=== PATIENT | female | born 1945 | race Two or more races ===

== ENCOUNTER 2025-05-16 13:28 | Outpatient (RCR) | payer OTHER, SELFPAY ==
--- NOTE | 2025-04-28 13:36 | CTCCONSULT_ITS ---
[facility] [address] [place], [place] [address] Consultation Note Date: 04/28/2025 MR#: [id number] Name: KEEGAN RAMOS : 1945 Dx: C82.95 Follicular lymphoma, unspecified, lymph nodes of inguinal region and lower limb Referring physician. Dean Cedeno MD Reason for consultation. Patient with follicular lymphoma right groin region referred for radiation therapy. History of Present Illness: Patient is a lady with follicular lymphoma diagnosed for the past 2 years. 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 This was under observation. Most recent biopsy February 18, 2025 revealed CD10 positive B-cell lymphoma with increased large cells with Ki- 67 proliferation patient index 70% consistent in follicular areas with lymphoma B-cell proliferation. PET scan 03/21/2025 revealed large conglomerate hypermetabolic chloe mass in the right inguinal area extending to the right anterior lateral pelvic sidewall measuring up to 10.2 cm with SUV 10.48 compatible with lymphoma. There was no abnormal uptake seen elsewhere. Patient recently went to the ER February 15, 2025 and noted to have pulmonary embolism without cor pulmonale and right lower extremity DVT. Had IVC filter placed. Past Medical History: Recurrent epigastric pain reportedly with esophageal ulcers and history of gastric paracentesis. 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 Metformin metoclopramide metoprolol potassium Family history. Mother had colon cancer father had prostate cancer Allergies none to meds Social History: Currently retired Review of Systems: Has a nausea nocturia pain in abdomen recent back pain sleep problem unexplained fatigue anxiety blood in bowel movement coughing up of blood Physical Exam: General: Tired appearing lady no acute distress HEENT: Atraumatic normocephalic extraocular is intact no oral lesions no cervical or supraclavicular adenopathy CV: Chest good auscultation heart regular rate and rhythm ABD: Palpable mass in the right groin EXT: Right lower extremity swelling noted Assessment:1. Patient with large right groin follicular B-cell lymphoma. 2. This appears to be fairly large and growing although no sign of extension to other sites of the body. 3. I do agree with Dr. Cedeno that considering the bulky size and the significant growth that chemo needs to be considered. 5. Post chemoradiation therapy would result in smaller field likely lower dosage overall. Side effects discussed. 6. Thank you very much for allowing me to evaluate this patient. Cc: Dean Cedeno MD Electronically signed by: Kiran Londono MD, DABR 04/28/2025 1:34 PM
--- NOTE | 2025-05-02 09:44 | CTCTXPLN_ITS ---
[facility] [place] [address] [place], [place] [address] Physician Clinical Treatment Planning Note Date of Service: 05/02/2025 Name: KEEGAN SANTAMARIALucia SanchezB.: 1945 The patient has agreed to proceed with Radiation therapy. Tests and supporting medical records were interpreted to assist in defining the tumor location and extent of disease. Further imaging will be necessary to contour and delineate the volume to which the XRT will be provided. A. Treatment Intent: Curative B. Modality: 6 MV C. Requested Technique: VMAT D. Treatment Site: Right groin E. Critical structures to be contoured on plan: Pelvis F. In order to accomplish this plan, I am ordering/Prescribing the followin. Simulations (s) will be performed to accomplish a reproducible treatment position, to determine optimal treatment portals/beam arrangements, to design beam modifying devices and verify treatment portals on patient prior to the commencement of Radiation Therapy. Pelvis 2. Devices; for immobilization and beam shaping: Vac-Phoebe 3. CT Guidance for placement of XRT hayes Scan area: 4. Portal images Frequency: 5. Invivo transit dose measurement once per week on all VMAT patients. 6. Special Physics Consult Requested for: 7. Other requests: G. Dose Objectives: Curative Electronically signed by: Kiran Londono M.D. 05/02/2025 9:41 AM
--- NOTE | 2025-05-02 10:15 | CTCTXPLNST_ITS ---
Radiation Oncology Treatment Planning Sheet Name: KEEGAN RAMOS MR#: [id number] : 1945 Dx: C82.95 Follicular lymphoma, unspecified, lymph nodes of inguinal region and lower limb Date of Service: 05/02/2025 Account #: ?? Pt Treatment Intent: curative palliative other: Stage: Procedure CPT # Ordered Spec. Procedure 35788 Villa Complex (set-up) 54601 pelvis 1 Villa Simple 20755 IMRT Plan 77317 1 MLC Devices VMAT 16719 3 Villa 3 D 80042 TRTMT dev Complex 91541 vaklok 1 TRTMT dev simple 89051 Basic Bj 15174 6 Special Dosimetry 55218 Spec Physics 14101 Port Films 15556 SRS Cranial/1FX 15617 SBR 5 FX or Less /ex: 5 = 5 fx 79185 IMRT Simple 90648 3600 20 IMRT Complex 45045 IGRT 33648 18 Rad del com - 02202 Rad del com 10-05 00395 Cont Med Physics 94074 4 Treatment Planning 82206 1 Rad del com 20 mev 53089 Rad del inter 04-26 98320 Rad del inter 10-05 61773 Rad del simple 04-26 08689 Rad del simple 10-05 00967 Special Port Plan 80521 TRTMT dev inter 03295 Isodose Complex 10385 Isodose simple 54485 Resp Motion Mgmt Simulation 28704 Placement of Fiducial Markers 85400 Electronically Signed By: Kiran Londono MD, DABR 05/02/2025 10:13 AM
--- NOTE | 2025-05-09 10:32 | CTCTXPLNST_ITS ---
Radiation Oncology Treatment Planning Sheet Name: KEEGAN RAMOS MR#: [id number] : 1945 Dx: C82.95 Follicular lymphoma, unspecified, lymph nodes of inguinal region and lower limb Date of Service: 05/09/2025 Account #: ?? Pt Treatment Intent: curative palliative other: Stage: Procedure CPT # Ordered Spec. Procedure 09347 Villa Complex (set-up) 49623 pelvis 1 Villa Simple 20170 1 IMRT Plan 28642 MLC Devices VMAT 62242 Villa 3 D 14153 1 TRTMT dev Complex 82232 Vaklok/2F 1 TRTMT dev simple 98470 [place] [address] 2 Special Dosimetry 77680 Spec Physics 83776 Port Films 18008 5 SRS Cranial/1FX 73352 SBR 5 FX or Less /ex: 5 = 5 fx 92581 IMRT Simple 27939 IMRT Complex 05657 IGRT 21948 Rad del com 04-26 56771 Rad del com 10-05 74891 3600 20 Cont Med Physics 76514 4 Treatment Planning 92812 1` Rad del com 20 mev 82128 Rad del inter 04-26 11489 Rad del inter 10-05 27350 Rad del simple 04-26 15728 Rad del simple 10-05 75901 Special Port Plan 40110 TRTMT dev inter 62162 Isodose Complex 56458 Isodose simple 57281 Resp Motion Mgmt Simulation 03165 Placement of Fiducial Markers 44142 Electronically Signed By: Kiran Londono MD, ELHAMR 05/09/2025 10:29 AM
== END 2025-05-16 23:59 | disposition home or self-care (01) ==
LOC: SCTC 13:28
PROVIDERS: PCP Internal Medicine Hematology & Oncology; Referring Provider Internal Medicine Hematology & Oncology; Visit Provider Radiology Therapeutic Radiology
DX: Z51.0 Encounter for antineoplastic radiation therapy (principal); C83.35 Diffuse large B-cell lymphoma, lymph nodes of inguinal region and lower limb; Z80.0 Family history of malignant neoplasm of digestive organs; Z80.42 Family history of malignant neoplasm of prostate
CPT/HCPCS: 77014; 77280; 77290; 77295; 77300; 77334; 77336; 77412; 99213; G0463

== ENCOUNTER 2025-06-13 13:13 | Outpatient (RCR) | payer MEDICARE, SELFPAY | END 2025-06-16 23:59 | disposition home or self-care (01) | LOC: SCTC 13:13 | PROVIDERS: PCP Internal Medicine Hematology & Oncology; Referring Provider Internal Medicine Hematology & Oncology; Visit Provider Radiology Therapeutic Radiology | DX: Z51.0 Encounter for antineoplastic radiation therapy (principal); C82.95 Follicular lymphoma, unspecified, lymph nodes of inguinal region and lower limb | CPT/HCPCS: 77336; 77412; 77417 ==

== ENCOUNTER 2025-06-28 14:21 | Outpatient (RCR) | payer MEDICARE, SELFPAY ==
--- NOTE | 2025-06-28 15:57 | CTCTSUMM_ITS ---
[facility] [address] [place], [place] [address] Treatment Summary Date: 06/28/2025 MR#: [id number] Name: KEEGAN RAMOS : 1945 Dx: C82.95 Referring Physician: Dean Cedeno MD (A) Diagnosis: [ICD10] C82.95 Follicular lymphoma, unspecified, lymph nodes of inguinal region and lower limb (B) Aim of Treatment: ??Curative (C) Concomitant Chemotherapy: No (D) Radiation Dates: 05/16/2025 through 06/13/2025 Treatment Prescription pelvis AP/PA Mixed Mode 3,600 cGy 20 180 cGy Approved (E) All hayes were treated using customized MLC Blocks (F) Finding at Discharge: Patient tolerated treatment well and the tumor was felt to be getting somewhat smaller during the treatment course. (G) Discharge Instructions and F/U Appt was given: The patient was also advised to continue follow-up with Dr. Cedeno and primary care physician: cc: Dean Cedeno MD Electronically signed by: Kiran Londono MD, DABR 06/28/2025 3:55 PM
== END 2025-07-17 23:59 | disposition home or self-care (01) ==
LOC: SCTC 14:21
PROVIDERS: PCP Internal Medicine Hematology & Oncology; Referring Provider Internal Medicine Hematology & Oncology; Visit Provider Radiology Therapeutic Radiology
DX: C82.95 Follicular lymphoma, unspecified, lymph nodes of inguinal region and lower limb (principal)
CPT/HCPCS: 99212; G0463